=== PATIENT | female | born 1970 | race Caucasian/White ===

== ENCOUNTER → 2017-06-30 | Outpatient (CLI) | payer MEDICARE, OTHER ==
[~2017-06-30] MED LIST: ABILIFY10 MG PO; CLEOCIN HCL150 MG PO; CYMBALTA60 MG PO; PERCOCET 7.5-31 EACH PO; XANAX 0.5 MG0.5 MG PO
== END ==
LOC: M.CT 15:34
DX: R91.8 Other nonspecific abnormal finding of lung field (principal); K44.9 Diaphragmatic hernia without obstruction or gangrene; R59.9 Enlarged lymph nodes, unspecified; I70.0 Atherosclerosis of aorta

== ENCOUNTER → 2017-08-12 | Outpatient (CLI) | payer MEDICARE, OTHER | LOC: M.ULTRA 08-08 13:23 | DX: R59.0 Localized enlarged lymph nodes (principal); R59.1 Generalized enlarged lymph nodes; Z88.5 Allergy status to narcotic agent ==